=== PATIENT | male | born 1990 ===

== ENCOUNTER 2021-06-01 21:04 | Emergency (ER) | payer OTHER ==
[2021-06-01 21:50] LABS: Absolute Lymphocytes (CBC) 1.2 K/uL (0.7-4.9); Hematocrit 39.4 % (39.6-49.0); Lymphocytes % 30.1 % (15.3-44.8); RBC Red Blood Cell Count 4.39 M/uL (4.33-5.43)
[2021-06-01 22:11] LABS: ALT/SGPT 35 U/L (12-78); AST/SGOT 22 U/L (15-37); Alkaline Phosphatase 58 U/L (45-117); BUN Blood Urea Nitrogen 12 mg/dL (7-18); Bicarbonate 26 mmol/L (21-32); Bilirubin Direct < 0.1 mg/dL (0-0.2); Bilirubin Total 0.3 mg/dL (0.2-1.0); Glucose Level 100 mg/dL (74-106); Lipase 93 U/L (73-393); Potassium 3.9 mmol/L (3.5-5.1); Protein, Total 7.1 g/dL (6.4-8.2); Sodium Level 139 mmol/L (136-145)
[2021-06-01 22:57] LABS: Urine Blood Negative (Negative); Urine Glucose Negative (Negative); Urine Protein Negative (Negative); Urine Specific Gravity 1.025 (1.005-1.030)
[2021-06-01 23:08] LABS: SARS-COV-2 RT PCR POSITIVE (NEGATIVE)
--- NOTE | 2021-06-01 23:40 | EDPHYS ---
Physician Documentation [facility] Name: Damian Alvarado Age: 30 yrs Sex: Male : 1990 Arrival Date: 06/01/2021 Time: 21:09 Bed 27 Private MD: ED Physician Son Patino HPI: 06/01 23:22 This 30 yrs old Male presents to ER via Ambulatory with complaints of Low Back Pain, kb Abdominal Pain, Leg Pain. 23:22 The patient presents with abdominal pain in the lower abdomen. Onset: The kb symptoms/episode began/occurred 2 day(s) ago. The symptoms do not radiate. Associated signs and symptoms: Pertinent positives: nausea, vomiting, and diarrhea, fever. The symptoms are described as constant. Modifying factors: The symptoms are alleviated by nothing, the symptoms are aggravated by nothing. Severity of pain: At its worst the pain was mild moderate in the emergency department the pain is unchanged. The patient has not experienced similar symptoms in the past. The patient has not recently seen a physician. Pt reports lower abd pain, right flank pain, n/v/d and subjective fever that started 2 days ago. Historical: - Allergies: 21:34 No Known Allergies; ld1 - Home Meds: 21:34 gabapentin 300 mg Oral cap 1 cap 3 times per day [Active]; sertraline oral [Active]; ld1 - PMHx: 21:34 Cirrhosis; Anxiety; Depressive disorder; ld1 - PSHx: 21:34 None; ld1 - Immunization history:: Adult Immunizations up to date, Client reports having NOT received the Covid vaccine. Client reports having NOT received the Covid vaccine. - Social history:: Smoking status: Reported history of juuling and/or vaping. Patient/guardian denies using alcohol. ROS: 23:21 Respiratory: Negative for shortness of breath, cough, wheezing, and pleuritic chest kb pain. 23:21 Constitutional: Positive for body aches, fever. 23:21 Abdomen/GI: Positive for abdominal pain, nausea, vomiting, and diarrhea. 23:21 Back: Positive for flank pain, on the right. 23:21 All other systems are negative. Exam: 23:21 Constitutional: This is a well developed, well nourished patient who is awake, alert, kb and in no acute distress. Head/Face: Normocephalic, atraumatic. ENT: Moist Mucous membranes Cardiovascular: Regular rate and rhythm with a normal S1 and S2. No gallops, murmurs, or rubs. No pulse deficits. Respiratory: Respirations even and unlabored. No increased work of breathing. Talking in full sentences Skin: Warm, dry with normal turgor. Normal color. MS/ Extremity: Pulses equal, no cyanosis. Neurovascular intact. Full, normal range of motion. Neuro: Awake and alert, GCS 15, oriented to person, place, time, and situation. Moves all extremities. Normal gait. Psych: Awake, alert, with orientation to person, place and time. Behavior, mood, and affect are within normal limits. 23:21 Abdomen/GI: Inspection: abdomen appears normal, Bowel sounds: normal, in all quadrants, Palpation: soft, in all quadrants, mild abdominal tenderness, in the right lower quadrant and left lower quadrant. Vital Signs: 21:33 BP 133 / 87; Pulse 70; Resp 18; Temp 99.6(O); Pulse Ox 100% on R/A; Weight 68.04 kg; ld1 Height 5 ft. 10 in. (177.80 cm); Pain 7/10; 21:33 Body Mass Index 21.52 (68.04 kg, 177.80 cm) ld1 MDM: 22:18 Patient medically screened. 22:58 Data reviewed: vital signs, nurses notes. Data interpreted: Pulse oximetry: on room air kb is 100 %. Interpretation: normal. 23:38 Counseling: I had a detailed discussion with the patient and/or guardian regarding: the historical points, exam findings, and any diagnostic results supporting the discharge/admit diagnosis, lab results, radiology results, the need for outpatient follow up, a family practitioner, to return to the emergency department if symptoms worsen or persist or if there are any questions or concerns that arise at home. 23:40 Data reviewed: I have discussed the patient's presentation/case with the attending Emergency Department Physician;. 06/01 21:25 Order name: Basic Metabolic Panel; Complete Time: 22:18 ld06/01 21:25 Order name: CBC with Diff; Complete Time: 22:09 ld06/01 21:25 Order name: Hepatic Function; Complete Time: 22:18 ld06/01 21:25 Order name: Lipase; Complete Time: 22:18 [facility] 06/01 21:28 Order name: COVID-19/FLU A+B (Document "Date of Onset" if Symptomatic); Complete Time: ld1 23:15 06/01 22:57 Order name: Urine Dipstick-Ancillary; Complete Time: 22:58 [facility] 06/01 21:25 Order name: IV Saline Lock; Complete Time: 21:36 [facility] 06/01 21:25 Order name: Labs collected and sent; Complete Time: 21:36 [facility] 06/01 21:27 Order name: Urine Dipstick-Ancillary (obtain specimen); Complete Time: 22:58 [facility] 06/01 22:34 Order name: CT Abd/Pelvis - IV Contrast Only kb Administered Medications: No medications were administered Disposition: 23:50 Co-signature as Attending Physician, Son Patino MD. pknirmala Disposition Summary: 06/01/21 23:40 Discharge Ordered Location: Home kb Condition: Stable kb Diagnosis - Coronavirus infection, unspecified kb - Lower abdominal pain, unspecified kb Followup: kb - With: Emergency Department - When: As needed - Reason: Worsening of condition Followup: kb - With: Private Physician - When: 2 - 3 days - Reason: Recheck today's complaints, Continuance of care, Re-evaluation by your physician Discharge Instructions: - Discharge Summary Sheet kb - Abdominal Pain, Adult, [id number] kb - Viral Respiratory Infection, [id number] kb - COVID-19 kb Forms: - Medication Reconciliation Form kb - Thank You Letter kb - Antibiotic Education kb - Prescription Opioid Use kb Signatures: Dispatcher [employer] EDCO Ruth Winter, PRESIDENT ERGONOMIC CONSULTING-C PRESIDENT ERGONOMIC CONSULTING-Son Victoria MD MD pkl Maia Jackson, RN RN ld1 Maty Flores, RN RN kd3
--- NOTE | 2021-06-01 23:40 | ER ---
Nurse's Notes [facility] Name: Damian Alvarado Age: 30 yrs Sex: Male : 1990 Arrival Date: 06/01/2021 Time: 21:09 Bed 27 Private MD: Diagnosis: Coronavirus infection, unspecified;Lower abdominal pain, unspecified Presentation: 06/01 21:33 Chief complaint: Patient states: LLQ pain, N/V/D x 2 days. Coronavirus screen: Client ld1 presents with at least one sign or symptom that may indicate coronavirus-19. Standard/surgical mask placed on the client. Ebola Screen: No symptoms or risks identified at this time. Initial Sepsis Screen: Does the patient meet any 2 criteria? No. Patient's initial sepsis screen is negative. Does the patient have a suspected source of infection? No. Patient's initial sepsis screen is negative. Risk Assessment: Do you want to hurt yourself or someone else? Patient reports no desire to harm self or others. Onset of symptoms was June 01, 2021. 21:33 Method Of Arrival: Ambulatory ld1 21:33 Acuity: MICH 3 ld1 Triage Assessment: 21:34 General: Appears in no apparent distress. comfortable, Behavior is calm, cooperative, ld1 appropriate for age. Pain: Complains of pain in left lower quadrant Pain does not radiate. Pain currently is 7 out of 10 on a pain scale. Quality of pain is described as stabbing, Pain began suddenly, Is intermittent. Neuro: Level of Consciousness is awake, alert, obeys commands, Oriented to person, place, time, situation, Appropriate for age. Respiratory: Airway is patent Respiratory effort is even, unlabored, Respiratory pattern is regular, symmetrical. GI: Abdomen is flat, non-distended, Reports lower abdominal pain, diarrhea, nausea, vomiting. Historical: - Allergies: 21:34 No Known Allergies; ld1 - Home Meds: 21:34 gabapentin 300 mg Oral cap 1 cap 3 times per day [Active]; sertraline oral [Active]; ld1 - PMHx: 21:34 Cirrhosis; Anxiety; Depressive disorder; ld1 - PSHx: 21:34 None; ld1 - Immunization history:: Adult Immunizations up to date, Client reports having NOT received the Covid vaccine. Client reports having NOT received the Covid vaccine. - Social history:: Smoking status: Reported history of juuling and/or vaping. Patient/guardian denies using alcohol. Screenin:47 Abuse screen: Denies threats or abuse. Denies injuries from another. Nutritional kd3 screening: No deficits noted. Tuberculosis screening: No symptoms or risk factors identified. Fall Risk None identified. IV access (20 points). Assessment: 23:48 GI: Bowel sounds present X 4 quads. Abd is soft X 4 quads. kd3 Vital Signs: 21:33 BP 133 / 87; Pulse 70; Resp 18; Temp 99.6(O); Pulse Ox 100% on R/A; Weight 68.04 kg; ld1 Height 5 ft. 10 in. (177.80 cm); Pain 7/10; 21:33 Body Mass Index 21.52 (68.04 kg, 177.80 cm) ld1 ED Course: 21:09 Patient arrived in ED. ja2 21:34 Triage completed. ld1 21:34 Arm band placed on right wrist. ld1 21:36 COVID-19/FLU A+B (Document "Date of Onset" if Symptomatic) Sent. ld1 21:36 Inserted saline lock: 20 gauge in right antecubital area, using aseptic technique. ld1 Blood collected. 22:08 Ruth Witner FNP-C is [facility]. kb 22:08 Son Patino MD is Attending Physician. kb 22:35 Maty Flores RN is Primary Nurse. kd3 22:57 CT Abd/Pelvis - IV Contrast Only In Process Unspecified. EDMS 23:48 No provider procedures requiring assistance completed. IV discontinued, intact, kd3 bleeding controlled, No redness/swelling at site. 23:49 Patient has correct armband on for positive identification. Side rails up X 1. kd3 Administered Medications: No medications were administered Outcome: 23:40 Discharge ordered by . kb 23:48 Discharged to home ambulatory. kd3 23:48 Condition: stable 23:48 Instructed on discharge instructions, follow up and referral plans. Demonstrated understanding of instructions, follow-up care. 23:49 Patient left the ED. kd3 Signatures: Dispatcher [employer] EDMS Ruth Winter FNP-C FNP-Ckb Dibbern, Lauren, RN RN ldYudith Moreno Kyli, RN RN kd3
[2021-06-02 01:04] VITALS: BP 133/87; TEMP 99.6; O2SAT 100
--- NOTE | 2021-06-02 15:27 | RAD REPORT ---
EXAM DESCRIPTION: CT - Abdomen Pelvis W Contrast - 06/02/2021 6:31 am CLINICAL HISTORY: 30 years Male ABD PAIN COMPARISON: None. TECHNIQUE: Contiguous axial images obtained through the abdomen and pelvis following IV contrast. Re formatted images obtained. This exam was performed according to our department optimization program which includes automated exp osure control, adjustment of the mA and/or kv according to patient size and/or use of iterative recon struction technique. FINDINGS: The lung bases are clear. There is a small low-density lesion in the superior liver which is incompletely characterized. There is a linear density also visualized in the right lobe of the liver superiorly which is of uncertain e tiology. MRI is recommended to better evaluate these findings. The liver is slightly enlarged measuri ng 19 cm in length. The liver appears to have a macronodular contour suggesting cirrhosis. There are varices around the stomach. There is recanalization of the umbilical vein with caput medusa around th e umbilicus. The spleen and pancreas appear unremarkable. No adrenal masses. The kidneys appear unremarkable. No hydronephrosis. Changes from previous cholecystectomy. No aneurysmal dilatation of the aorta. No bowel obstruction. Small appendicolith within the appendix. There is mild stranding in the mesen jorge luis and also around the appendix possibly from changes related to portal hypertension. The appendix does not appear dilated and there does not appear to be increased enhancement within the wall of the appendix suggesting against appendicitis. There is minimal free fluid in the pelvis which is an abnormal finding in a male patient. No acute osseous abnormality is identified. IMPRESSION: 1. The liver appears to have a macronodular contour suggesting cirrhosis. There is a s mall low-density lesion in the superior liver which is incompletely characterized. There is a linear density also visualized in the right lobe of the liver superiorly which is of uncertain etiology. MRI is recommended to better evaluate these findings. 2. There are varices around the stomach. There is recanalization of the umbilical vein with caput m edusa around the umbilicus. The findings are consistent with portal hypertension. 3. There is mild stranding in the mesentery and also around the appendix possibly from changes rela rafael to portal hypertension. The appendix does not appear dilated and there does not appear to be incr eased enhancement within the wall of the appendix suggesting against appendicitis. 4. There is minimal free fluid/ascites in the pelvis. Electronically signed by: Alvaro Al MD 06/01/2021 11:32 PM [employer] Due to temporary technical issues with the PACS/Fluency reporting system, reports are being signed by the in house radiologists without review as a courtesy to insure prompt reporting. The interpreting radiologist is fully responsible for the content of the report.
== END 2021-06-01 23:49 | disposition home or self-care (01) ==
LOC: ER 21:04
DX: U07.1 COVID-19 (principal); F32.A Depression, unspecified
CPT/HCPCS: 85025; 80048; 36415; 80076; 81003; 83690; 0240U; 74177; Q9967; 99283